=== PATIENT | female | born 1950 | race Caucasian/White ===

== ENCOUNTER 2022-02-11 10:32 | Outpatient (CLI) | payer MEDICARE, SELFPAY ==
[2022-02-11 13:13] LABS: Albumin* 4.5 g/dL (3.3-5.0); Chloride* 98 mmol/L (96-114); Potassium* 5.3 mmol/L (3.6-5.1); Sodium* 130 mmol/L (135-149)
[2022-02-11 13:16] LABS: Blood Urea Nitrogen* 16 mg/dL (7-30); Carbon Dioxide* 21 mmol/L (20-32); Creatinine* 0.6 mg/dL (0.5-1.5); Estimated Glomerular Filt Rate 95 ml/min; Iron* 68 ug/dL (37-170)
[2022-02-11 13:17] LABS: Calcium* 9.9 mg/dL (8.4-10.6); Glucose* 131 mg/dL (60-115); Phosphorus* 4.9 mg/dL (2.5-4.5); Uric Acid* 2.6 mg/dL (2.2-8.4)
[2022-02-11 13:26] LABS: Percent Iron Saturation 14 % (20-50); Total Iron Binding Capacity 486 ug/dL (265-497)
[2022-02-11 13:50] LABS: Ferritin* 8.7 ng/mL (11.1-264.0)
== END 2022-02-11 10:33 | disposition home or self-care (01) ==
PROVIDERS: PCP Internal Medicine; Visit Provider Internal Medicine Nephrology
DX: E11.9 Type 2 diabetes mellitus without complications (principal); I10 Essential (primary) hypertension; N18.9 Chronic kidney disease, unspecified; D64.9 Anemia, unspecified; F41.9 Anxiety disorder, unspecified
CPT/HCPCS: 80069; 82043; 82310; 82570; 82728; 83540; 83550; 83970; 84550

== ENCOUNTER 2022-02-17 10:47 | Outpatient (CLI) | payer MEDICARE, SELFPAY ==
[2022-02-17 12:46] LABS: Creatinine Urine 28.4 mg/dL
[2022-02-17 12:52] LABS: Microalbumin Creatinine Ratio 30 mg/g (0-30); Microalbumin Urine < 1 mg/dL
== END 2022-02-17 10:48 | disposition home or self-care (01) ==
PROVIDERS: PCP Internal Medicine; Visit Provider Internal Medicine Nephrology
DX: E11.9 Type 2 diabetes mellitus without complications (principal); I10 Essential (primary) hypertension; N18.9 Chronic kidney disease, unspecified; D64.9 Anemia, unspecified; G47.00 Insomnia, unspecified; R52 Pain, unspecified
CPT/HCPCS: 82043; 82570; 87086

== ENCOUNTER 2022-08-20 10:48 | Outpatient (CLI) | payer MEDICARE, SELFPAY | END 2022-08-20 10:49 | disposition home or self-care (01) | PROVIDERS: PCP Internal Medicine; Referring Provider Internal Medicine; Visit Provider Internal Medicine | DX: D64.9 Anemia, unspecified (principal); I10 Essential (primary) hypertension; N18.1 Chronic kidney disease, stage 1; E11.9 Type 2 diabetes mellitus without complications | CPT/HCPCS: 80061; 80069; 82043; 82310; 82570; 82728; 83540; 83550; 83970; 84550; 87086 ==

== ENCOUNTER 2023-03-18 10:28 | Outpatient (CLI) | payer MEDICARE, SELFPAY | END 2023-03-18 10:29 | disposition home or self-care (01) | LOC: NFLDREF 03-22 06:42 | PROVIDERS: PCP Internal Medicine; Referring Provider Internal Medicine; Visit Provider Internal Medicine Nephrology | DX: D64.9 Anemia, unspecified (principal); E11.9 Type 2 diabetes mellitus without complications; I10 Essential (primary) hypertension; N18.1 Chronic kidney disease, stage 1 | CPT/HCPCS: 80061; 80069; 82043; 82570; 82728; 83540; 83550; 84450; 84460; 84550 ==

== ENCOUNTER 2023-05-26 09:27 | Outpatient (CLI) | payer MEDICARE, SELFPAY ==
--- NOTE | 2023-05-26 09:45 | CRLHL7_ITS ---
For Patients: As a result of the Cures Act, medical imaging exams and procedure reports are released immediately into your electronic medical record. You may view this report before your referring provider. If you have questions, please contact your health care provider. BILATERAL SCREENING MAMMOGRAM WITH COMPUTER-AIDED DETECTION AND TOMOSYNTHESIS TECHNIQUE: CC and MLO views were obtained. These mammographic images have been obtained using full-field digital technique. These mammographic images were interpreted with the benefit of computer-aided detection. Breast Tomosynthesis was used in this interpretation. COMPARISON FILM: 12/15/18, 08/17/17, 04/09/15. FINDINGS: There are scattered areas of fibroglandular density IMPRESSION: There is no radiographic evidence for malignancy. ASSESSMENT: BI-RADS Category 1: Negative RECOMMENDATION: Routine screening mammogram in 1 year. A lay language report of this examination will be provided to the patient. NAREN PICHARDO M.D. Diagnostic/Nuclear Medicine Radiologist [email or web address]:[email or web address] Transcribed: 3:22 p.mAdams briceno/Dictated by: Naren Pichardo MD @ 05/27/2023 8:28:00 AM (Electronically Signed)
== END 2023-05-26 09:28 | disposition home or self-care (01) ==
LOC: MAMMO 09:28
PROVIDERS: PCP Internal Medicine; Visit Provider Internal Medicine
DX: Z12.31 Encounter for screening mammogram for malignant neoplasm of breast (principal); I10 Essential (primary) hypertension; E11.9 Type 2 diabetes mellitus without complications; N18.1 Chronic kidney disease, stage 1; D64.9 Anemia, unspecified
CPT/HCPCS: 77063; 77067; 80053; 80061; 82043; 82570

== ENCOUNTER 2024-04-06 10:38 | Outpatient (CLI) | payer MEDICARE, SELFPAY ==
--- OUTSIDE RECORDS SUMMARY | 2024-04-09 08:43 | XMS_ITS | Clinical Summary ---
Author Organization [facility] Address [address] [place] [address] Care Team Providers Care Associate Justice Name Role Phone Unavailable Primary Care Provider Unavailabl e Source Comments Patient records contain information from all sites at [facility]. For routine questions regarding patient records, call [phone] during business hours, M-F 8:00 AM - 5:00 PM Central Time. Record requests for emergency care only can be directed to [phone] at any time.[facility] Allergies Active Allergy Reactions Criticality Noted Date Comments Hydrocodone-Acetaminophen Itching 12/30/2010 Morphine GI intolerance 03/12/2009 Pollen Extracts Other (see comments) 03/12/2009 Propoxyphene Other (see comments) 06/29/2014 Tramadol Other (see comments) 06/29/2014 Medications losartan (COZAAR) 100 mg tablet Take 1 tablet by mouth daily. 12/06/19 15 Active lidocaine (LIDODERM) 5 % Apply 1 patch topically daily. 10/06/19 17 Active aspirin (LO-DOSE ASPIRIN) [address] tablet Take 1 tablet by mouth 2 (two) times a day. 03/12/20 09 Active metFORMIN (GLUCOPHAGE) 500 mg tablet Take 1 tablet by mouth 2 (two) times a day. 12/20/19 15 Active pravastatin (PRAVACHOL) 40 mg tablet Take 1 tablet by mouth daily. 12/06/19 15 Active cyanocobalamin (VITAMIN B-12) 1,000 mcg/mL injection Inject 1 mL intramuscularly every 30 (thirty) days. 12/20/19 15 Active spironolactone (ALDACTONE) 50 mg tablet Take 1 tablet (50 mg total) by mouth daily. 90 tablet 3 07/27/19 Active carBAMazepine (TEGretol) 200 mg tablet Take 1 tablet (200 mg total) by mouth 2 (two) times a day. 180 tablet 3 07/27/19 Active Accu-Chek Susan Plus test strp strips Test daily before all meals/snacks and once before bedtime. 3 each 09/27/19 Active blood-glucose meter (Accu-Chek Susan Plus Meter) misc Test daily before all meals/snacks and once before bedtime. 1 each 3 09/27/19 Active Accu-Chek Susan Plus test strp stripsIndicati ons:Diabetes Mellitus Type 2 (HCC) 4 test daily. Check blood sugar before meals and at bedtime 360 test 3 10/03/19 Active insulin asp prt-insulin aspart (NovoLOG Mix 70-30FlexPen U-100) 100 unit/mL (70-30) injection Inject 0.18 mL (18 Units total) under the skin daily. 16.2 mL 3 10/19/19 Active eszopiclone (LUNESTA) 2 mg tablet Take 1 tablet (2 mg total) by mouth at bedtime. Take immediately before bedtime 90 tablet 3 02/07/20 Active amLODIPine (NORVASC) 2.5 mg tablet Take 1 tablet (2.5 mg total) by mouth at bedtime. 90 tablet 3 08/25/19 Active omeprazole (PriLOSEC) [address] capsule Take 1 capsule (20 mg total) by mouth every morning before breakfast. 90 capsule 3 10/04/19 24 025 Active metoprolol succinate (TOPROL-XL) 50 mg 24 hr tablet Take 1 tablet (50 mg total) by mouth daily. Do not crush or chew. 90 tablet 3 10/04/19 24 025 Active Active Problems Problem Noted Date Diagnosed Date Achalasia 10/04/2023 Raynaud's Disease 08/24/2022 Periodic Headache Syndromes In Child Or Adult Not Intractable 08/24/2022 Anemia Iron Deficiency 11/23/2018 Hyperkalemia 11/23/2018 Urinary Tract Infection Site Not Specified 07/26 Hyponatremia 04/20/2018 Hypertensive Chronic Kidney Disease With Stage 1 Through Stage 4 Chronic Kidney Disease, Or Unspecified Chronic Kidney Disease 03/24/2016 Chronic Kidney Disease Stage 1 Glomerular Filtration Rate Greater Than 90 03/28/2015 Diabetes Mellitus Type 2 06/21/2012 Immunizations Name Administration Dates Next Due Influenza Split 03/17/2012 Social History Tobacco Use Types Packs/Day Years Used Date Smoking Tobacco: Never Nutrition Answer Date Recorded Nutrition: EVOO Fat Source 13 12/11 Nutrition: Servings of Fruits/Vegetables per Day Not on file 12/12/2019 Dental Answer Date Recorded Dental: Regular Dentist Unknown 07/11/19 21 Comments Unknown Sex and Gender Information Value Date Recorded Sex Assigned at Not on file Legal Sex Female 1:00 PM FINANCIAL ADVISOR Gender Identity Not on file Sexual Orientation Not on file Last Filed Vital Signs Vital Sign Reading Time Taken Comments Blood Pressure 180/90 10/04/2023 2:50 PM CDT Pulse 88 10/04/2023 2:50 PM CDT Temperature - - Respiratory Rate 16 02/01/2017 3:06 PM CDT Vital sign result from Clinical Notes. Oxygen Saturation - - Inhaled Oxygen Concentration - - Weight 67.5 kg (148 lb 13 oz) 10/04/2023 2:50 PM CDT Height 152 cm (4' 11.84) 10/04/2023 2: 50 PM CDT Body Mass Index 29.22 10/04/2023 2:50 PM CDT Plan of Treatment Health Maintenance Due Date Last Done Comments Bone Density Scan (Osteoporosis Screen) 1949 CT Colonography 1950 Cologuard 1950 Diabetic Office Visit with Foot Exam 1949 Dilated Eye Exam 1949 FIT 1950 Hepatitis C Screening 1950 Hepatitis B Vaccines (1 of 3 - Risk 3-dose series) 2009 Mammogram 06/21/2013 06/21/2012, 05/2010 (Performed elsewhere), 05/17/2008 (Performed elsewhere) Urine Albumin 06/22/2013 06/22/2012 Colonoscopy 08/15/2021 08/16/2011 (Perf ormed elsewhere) Colorectal Cancer Screening 08/15/2021 Depression Screening (Annual PHQ-2) 05/17/2023 Fall Risk Screen (Annual) 05/17/2023 Office Visit for Blood Pressure Check / Re-check 01/04/2024 10/04/2023 COVID-19 Vaccine ( season) 2024 03/01/2023, 10/22/2022, 02/14/2022, Additional history exists Influenza Vaccine (#1) 2024 , 02/14/2022, 02/10/2021, Additional history exists Hemoglobin A1C 04/01/2024 09/30/2023, 070 06/2018, 12/05/2014, Additional history exists Creatinine Level (Kidney Function Test) 09/29/2024 09/30/2023, 11/15/2018, 12/05/2014, Additional history exists Potassium Level 09/29/2024 09/30/2023, 070 06/2018, 06/21/2012 Sodium Level 09/29/2024 09/30/2023, 07/0 06/2018, 06/21/2012 Lipid (Cholesterol) Screening 09/29/2028 09/30/2023, 12/05/2014, 10/11/2012, Additional history exists DTaP,Tdap,and Td Vaccines (3 - Td or Tdap) 02/12/2029 02/12/2019, 02/16/2012 Zoster Vaccines Completed 12/20/2017, 040 12/2017, 12/31/2009 Pneumococcal vaccine (65+ years) Completed 09/10/2021, 03/11/2015, 09/24/2009 IPV Vaccines Aged Out No longer eligi ble based on patient's age to complete this topic Procedures Procedure Name Priority Date/Time Associated Diagnosis Comments HEMOGLOBIN A1C, B Routine 12/05/2014 8:2 4 AM CDT LIPID PANEL, S Routine 12/05/2014 8:24 AM CDT CREATININE WITH EGFR, S/P Routine 12/05/2014 8:24 AM CDT ALBUMIN, 24 HR, U Routine 06/22/2012 10: 15 AM FINANCIAL ADVISOR BI BREAST SCREENING UNILATERAL Routine 06/21/2012 1:07 PM FINANCIAL ADVISOR SODIUM, S/P Routine 06/21/2012 9:59 AM FINANCIAL ADVISOR POTASSIUM, S/P Routine 06/21/2012 9:59 AM FINANCIAL ADVISOR from Last 3 Months or Most Recently Relevant to Health Maintenance Results * Lipid Panel (12/05/2014 8:24 AM CDT) Cholesterol, Total 193 SeeComment MG/DL [facility] Comment: REFERENCE VALUE Desirable: < 200 Borderline high: 200 - 239 High: > or = 240 Triglycerides 117 SeeComment MG/DL [facility] Comment: REFERENCE VALUE Normal: <150 Borderline high: 150-199 High: 200-499 Very high: > or =500 Cholesterol, HDL, S 63 >=50 MG/DL [facility] Calculated LDL 107 SeeComment MG/DL [facility] Comment: REFERENCE VALUE Desirable: <100 Above Desirable: 100-129 Borderline high: 130-159 High: 160-189 Very high: > or =190 Cholesterol, Non-HDL, Calculated 130 SeeComment MG/DL [facility] Comment: REFERENCE VALUE Desirable: <130 Above Desirable: 130-159 Borderline high: 160-189 High: 190-219 Very high: > or =220 12/05/2014 8:24 AM CDT 12/05/2014 8:24 AM CDT us Harmony Sen APRN, C.N.P., M.S. LAB BLOOD ADD-O N Final Result Performing Organization Address City/[facility] Co de Phone Number [facility] [address] * (ABNORMAL) Hemoglobin A1c (12/05/2014 8:24 AM CDT) Pathologist [facility] Hemoglobin A1c, B 7.3(H) 4.0 - 6.0 % [facility] 12/05/2014 8:24 AM CDT 12/05/2014 8:24 AM CDT us Harmony Sen APRN, C.N.P., M.S. LAB BLOOD ADD-O N Final Result Performing Organization Address [facility] de Phone Number [facility] [address] * Creatinine with Estimated GFR (MDRD) (12/05/2014 8:24 AM CDT) Pathologist [facility] Creatinine 0.8 0.6 - 1.1 MG/DL [facility] eGFR Non-Black/Afric an Haitian >60 >60 ML/MIN/BSA [facility] eGFR-Black/Afri can Haitian >60 >60 ML/MIN/BSA [facility] 12/05/2014 8:24 AM CDT 12/05/2014 8:24 AM CDT us Harmony Sen APRN, C.N.P., M.S. LAB BLOOD ADD-O N Final Result Performing Organization Address City/[facility]/ZIP Co de Phone Number [facility] [address] * Microalbuminuria, 24 Hour, Urine (06/22/2012 10:15 AM FINANCIAL ADVISOR) 24 Hour Excretion 15 <30 MG/24 H [facility] Albumin Excretion Rate 10 <20 MCG/MIN [facility] Urine Volume 2663 ML [facility] Collection Duration 24 H [facility] Albumin Concentration 5.5 MG/L [facility] 06/22/2012 10:1 5 AM FINANCIAL ADVISOR 06/22/2012 10:15 AM FINANCIAL ADVISOR us Juan F Villela M.D. LAB URINE ORDERABLES Lexii su Result [facility] [address] * BI Breast Screening (06/21/2012 1:07 PM FINANCIAL ADVISOR) Anatomical Region Laterality Modality Breast N/A Mammography 06/21/2012 1:07 PM FINANCIAL ADVISOR Impressions 06/21/2012 2:01 PM FINANCIAL ADVISOR NEGATIVE There is no mammographic evidence of malignancy. RECOMMENDATION: A 1 year screening mammogram is recommended. The patient will receive a letter notifying her of the results. deonna Collins M.D., M.D./kartik:06/21/2012 13:42:50 letter sent: 1S/2S - Negative Screen Mammogram BI-RADS: 1 Negative Electronically signed by: Shante Lyon MD [phone] [id number] 21-Jun-2012 14:01 Eusebia French MD 21-Jun-2012 14:01 Narrative 06/21/2012 2:01 PM FINANCIAL ADVISOR 21-Jun-2012 13:07:00 Exam: R MG /Screening Exam Indications: Mammogram Screening Breast Ca ORIGINAL REPORT - 21-Jun-2012 14:01:00 EXAM: BILATERAL DIGITAL SCREENING MAMMOGRAM WITH CAD: 06/21/2012 HISTORY/INDICATION: DM2. Current study was also evaluated with a Computer Aided Detection (CAD) system. COMPARISON: No prior exams were available for comparison. DENSITY: (D1) The tissue of both breasts is almost entirely fat. FINDINGS: No significant masses, calcifications, or other findings are seen in either breast. Procedure Note Lebron French M.D. - 08/13/2017 21-Jun-2012 13:07:00 Exam: R MG /Screening Exam Indications: Mammogram Screening Breast Ca ORIGINAL REPORT - 21-Jun-2012 14:01:00 EXAM: BILATERAL DIGITAL SCREENING MAMMOGRAM WITH CAD: 06/21/2012 HISTORY/INDICATION: DM2. Current study was also evaluated with a Computer Aided Detection (CAD) system. COMPARISON: No prior exams were available for comparison. DENSITY: (D1) The tissue of both breasts is almost entirely fat. FINDINGS: No significant masses, calcifications, or other findings are seen in either breast. IMPRESSION: NEGATIVE There is no mammographic evidence of malignancy. RECOMMENDATION: A 1 year screening mammogram is recommended. The patient will receive a letter notifying her of the results. Eusebia Lyon M.D. [facility],luz marina/jenniferrad:06/21/2012 13:42:50 letter sent: 1S/2S - Negative Screen Mammogram BI-RADS: 1 Negative Electronically signed by: Shante Lyon MD [phone] [id number] 21-Jun-2012 14:01 Eusebia French MD05-Feb-2013 14:01 Juan F Villela M.D. IMG BI PROCEDURES Final R esult * Sodium (06/21/2012 9:59 AM FINANCIAL ADVISOR) Sodium, S 143 135 - 145 MMOL/L [facility] 06/21/2012 9:59 AM FINANCIAL ADVISOR 06/21/2012 9:59 AM FINANCIAL ADVISOR Juan F Villela M.D. LAB BLOOD ADD-ON Final Re sult [facility] [address] * Potassium (06/21/2012 9:59 AM FINANCIAL ADVISOR) Potassium, S 4.2 3.6 - 5.2 MMOL/L [facility] 06/21/2012 9:59 AM FINANCIAL ADVISOR 06/21/2012 9:59 AM FINANCIAL ADVISOR us Juan F Villela M.D. LAB BLOOD ADD-ON Final Re sult [facility] [address] [place] [address], [facility] from Last 3 Months or Most Recently Relevant to Health Maintenance Insurance [facility]
--- OUTSIDE RECORDS SUMMARY | 2024-04-09 08:43 | XMS_ITS | Referral Summary ---
Author Organization [facility] Address [address] [place] [address] Care Team Providers Care Checker Dump Grounds Name Role Phone Unavailable Primary Care Provider Unavailabl e Source Comments Patient records contain information from all sites at [facility]. For routine questions regarding patient records, call [phone] during business hours, M-F 8:00 AM - 5:00 PM Central Time. Record requests for emergency care only can be directed to [phone] at any time.[facility] Allergies Active Allergy Reactions Criticality Noted Date [...] on file Legal Sex Female 1:00 PM BRAND SALES CONSULTANT Gender Identity Not on file Sexual Orientation [...] 10/04/2023 2:50 PM CDT Plan of Treatment Not on file Procedures Procedure Name Priority Date/Time Associated Diagnosis Comments HEMOGLOBIN A1C, B Routine 12/05/2014 8:2 4 AM CDT LIPID PANEL, S Routine 12/05/2014 8:24 AM CDT CREATININE WITH EGFR, S/P Routine 12/05/2014 8:24 AM CDT ALBUMIN, 24 HR, U Routine 06/22/2012 10: 15 AM BRAND SALES CONSULTANT BI BREAST SCREENING UNILATERAL Routine 06/21/2012 1:07 PM BRAND SALES CONSULTANT SODIUM, S/P Routine 06/21/2012 9:59 AM BRAND SALES CONSULTANT POTASSIUM, S/P Routine 06/21/2012 9:59 AM BRAND SALES CONSULTANT from Last 3 Months or Most Recently Relevant to Health Maintenance Results * Lipid Panel (12/05/2014 8:24 AM CDT) Cholesterol, Total 193 SeeComment MG/DL [facility] Comment: REFERENCE VALUE Desirable: < 200 Borderline high: 200 - 239 High: > or = 240 Triglycerides 117 SeeComment MG/DL [facility] Comment: REFERENCE VALUE Normal: <150 Borderline high: 150-199 High: 200-499 Very high: > or =500 Cholesterol, HDL, S 63 >=50 MG/DL [facility] Calculated LDL 107 SeeComment MG/DL [facility] Comment: REFERENCE VALUE Desirable: <100 Above Desirable: 100-129 Borderline high: 130-159 High: 160-189 Very high: > or =190 Cholesterol, Non-HDL, Calculated 130 SeeComment MG/DL [facility] Comment: REFERENCE VALUE Desirable: <130 Above Desirable: 130-159 Borderline high: 160-189 High: 190-219 Very high: > or =220 12/05/2014 8:24 AM CDT 12/05/2014 8:24 AM CDT us Harmony Sen APRN, C.N.P., M.S. LAB BLOOD ADD-O N Final Result [facility] [address] * (ABNORMAL) Hemoglobin A1c (12/05/2014 8:24 AM CDT) Hemoglobin A1c, B 7.3(H) 4.0 - 6.0 % [facility] 12/05/2014 8:24 AM CDT 12/05/2014 8:24 AM CDT Harmony Sen APRN, C.N.P., M.S. LAB BLOOD ADD-O N Final Result Performing Organization Address City/[facility] Co de Phone Number [facility] [address] * Creatinine with Estimated GFR (MDRD) (12/05/2014 8:24 AM CDT) Creatinine 0.8 0.6 - 1.1 MG/DL [facility] eGFR Non-Black/Afric an Filipino >60 >60 ML/MIN/BSA [facility] eGFR-Black/Afri can Filipino >60 >60 ML/MIN/BSA [facility] 12/05/2014 8:24 AM CDT 12/05/2014 8:24 AM CDT Harmony Sen APRN, C.N.P., M.S. LAB BLOOD ADD-O N Final Result Performing Organization Address City/[facility]/ZIP Co de Phone Number [facility] [address] * Microalbuminuria, 24 Hour, Urine (06/22/2012 10:15 AM BRAND SALES CONSULTANT) 24 Hour Excretion 15 <30 MG/24 H [facility] Albumin Excretion Rate 10 <20 MCG/MIN [facility] Urine Volume 2663 ML [facility] Collection Duration 24 H [facility] Albumin Concentration 5.5 MG/L [facility] 06/22/2012 10:1 5 AM BRAND SALES CONSULTANT 06/22/2012 10:15 AM BRAND SALES CONSULTANT us Juan F Villela M.D. LAB URINE ORDERABLES Lexii l Result [facility] [address] * BI Breast Screening (06/21/2012 1:07 PM BRAND SALES CONSULTANT) Anatomical Region Laterality Modality Breast N/A Mammography 06/21/2012 1:07 PM BRAND SALES CONSULTANT Impressions 06/21/2012 2:01 PM BRAND SALES CONSULTANT NEGATIVE There is no mammographic evidence of malignancy. RECOMMENDATION: A 1 year screening mammogram is recommended. The patient will receive a letter notifying her of the results. Eusebia flynn,deonna/kartik:06/21/2012 13:42:50 letter sent: 1S/2S - Negative Screen Mammogram BI-RADS: 1 Negative Electronically signed by: Shante Lyon MD [phone] 21-Jun-2012 14:01 Eusebia French MD 21-Jun-2012 14:01 Narrative 06/21/2012 2:01 PM BRAND SALES CONSULTANT 21-Jun-2012 13:07:00 Exam: R MG /Screening Exam [...] letter notifying her of the results. Eusebia flynn,deonna/kartik:06/21/2012 13:42:50 letter sent: 1S/2S - Negative Screen Mammogram BI-RADS: 1 Negative Electronically signed by: Shante Lyon MD [phone] [id number] 21-Jun-2012 14:01 Eusebia French MD05-Feb-2013 14:01 Juan F Villela M.D. IMG BI PROCEDURES Final R esult * Sodium (06/21/2012 9:59 AM BRAND SALES CONSULTANT) Sodium, S 143 135 - 145 MMOL/L [facility] 06/21/2012 9:59 AM BRAND SALES CONSULTANT 06/21/2012 9:59 AM BRAND SALES CONSULTANT Juan F Villela M.D. LAB BLOOD ADD-ON Final Re sult [facility] [address] [facility] [address] [place], [place] [id number] [place] [address] * Potassium (06/21/2012 9:59 AM BRAND SALES CONSULTANT) Potassium, S 4.2 3.6 - 5.2 MMOL/L [facility] 06/21/2012 9:5 9 AM BRAND SALES CONSULTANT 06/21/2012 9:59 AM BRAND SALES CONSULTANT Jua nF Villela M.D. LAB BLOOD ADD-ON Final Re sult [facility] [address] [place] [address], [facility] from Last 3 Months or Most Recently Relevant to Health Maintenance Insurance [facility]
--- OUTSIDE RECORDS SUMMARY | 2024-04-09 08:44 | XMS_ITS ---
Author Organization [facility] Address [address] [place] [address] Care Team Providers Care Transportation Modeler Name Role Phone Unavailable Unavailable Unavailable Surgery Details Not on file Complications Check Surgery Details section. Procedure Estimated Blood Loss Check Surgery Details section. Procedure Findings Check Surgery Details section. Procedure Specimens Taken Check Surgery Details section.
== END 2024-04-06 10:39 | disposition home or self-care (01) ==
LOC: NFLDREF 04-09 08:42
PROVIDERS: PCP Internal Medicine; Referring Provider Internal Medicine; Visit Provider Internal Medicine Nephrology
DX: E11.9 Type 2 diabetes mellitus without complications (principal); I10 Essential (primary) hypertension; N18.1 Chronic kidney disease, stage 1; F41.9 Anxiety disorder, unspecified; D64.9 Anemia, unspecified
CPT/HCPCS: 80061; 80069; 82043; 82570; 82728; 83540; 83550; 84450; 84460; 84550; 86140; 87086

== ENCOUNTER 2024-08-23 14:18 | Outpatient (CLI) | payer MEDICARE, SELFPAY | END 2024-08-23 14:19 | disposition home or self-care (01) | PROVIDERS: PCP Internal Medicine; Visit Provider Internal Medicine | DX: D64.9 Anemia, unspecified (principal); R53.1 Weakness; N18.1 Chronic kidney disease, stage 1 | CPT/HCPCS: 80053; 84443 ==

== ENCOUNTER 2024-09-04 09:54 | Outpatient (CLI) | payer MEDICARE, SELFPAY ==
--- NOTE | 2024-09-04 10:00 | CRLHL7_ITS ---
For Patients: As a result of the Century Cures Act, medical imaging exams and procedure reports are released immediately into your electronic medical record. You may view this report before your referring provider. If you have questions, please contact your health care provider. Indication: WEAKNESS, WEIGHT LOSS 50#s IN 5-6 MONTHS., LEFT SIDED CP DOWN TO MID ABD. PT HAD 2 FALLS A MONTH AGO Technique: CT Chest/Abd/Pelvis 56CC ISOVUE 370 INTRAVENOUS CONTRAST AND WATER PREP ORAL Please note that all CT scans at this facility use dose modulation, iterative reconstruction, and/or weight-based dosing when appropriate to reduce radiation dose to as low as reasonably achievable. Comparison: 07/29/2010 CT abdomen and pelvis Findings: In the chest, atherosclerotic changes are present. No aneurysm. Bilateral pulmonary emboli are present within the distal right main pulmonary artery extending into the interlobar artery as well as subsegmental branches in the right lower lobe and right upper lobe. Pulmonary emboli also present within left lower lobe segmental branches. Peripheral density measuring 2.2 cm within the posterior right lower lobe noted. Calcified granuloma within the right middle lobe. No pleural effusion or pneumothorax. Degenerative disc disease. Increased thoracic kyphosis. Postop changes to the right shoulder. No suspicious osseous lesion or fracture. In the abdomen, postop changes to the proximal stomach/GE junction. No intrahepatic mass. Differential perfusion noted within the left hepatic lobe. Calcified granulomas within the spleen. Thickening of the left adrenal gland. Normal right adrenal gland. No hydronephrosis. Pancreas unremarkable. Normal gallbladder. No adenopathy. Atherosclerotic changes. Postop changes lumbar spine. In the pelvis, the bladder is normal. No bowel obstruction. Increased colonic stool. No pelvic adenopathy. No acute fracture. Chronic changes to the left proximal femur. Impression: Bilateral pulmonary emboli. Called to Dr. Carrion 12:14 p.m. 09/04/2024. Peripheral posterior pulmonary density right lower lobe which could represent infarct. Constipation. No mechanical bowel obstruction. Postop changes upper abdomen. No discernible hepatic mass. Please note that all CT scans at this facility use dose modulation, iterative reconstruction, and/or weight-based dosing when appropriate to reduce radiation dose to as low as reasonably achievable. Dictated by Marcos Benavides MD @ 09/04/2024 12:52:02 PM (Electronically Signed)
== END 2024-09-04 09:55 | disposition home or self-care (01) ==
PROVIDERS: PCP Internal Medicine; Visit Provider Internal Medicine
DX: R53.1 Weakness (principal); I26.99 Other pulmonary embolism without acute cor pulmonale; R63.4 Abnormal weight loss
CPT/HCPCS: 71260; 74177; Q9967

== ENCOUNTER 2024-09-19 11:08 | Outpatient (CLI) | payer MEDICARE, SELFPAY | END 2024-09-19 11:09 | disposition home or self-care (01) | LOC: NFLDREF 11:08 | PROVIDERS: PCP Internal Medicine; Visit Provider Internal Medicine | DX: I10 Essential (primary) hypertension (principal); I26.99 Other pulmonary embolism without acute cor pulmonale; R79.89 Other specified abnormal findings of blood chemistry | CPT/HCPCS: 80053 ==

== ENCOUNTER 2025-02-14 10:41 | Outpatient (CLI) | payer MEDICARE, SELFPAY | END 2025-02-14 10:42 | disposition home or self-care (01) | LOC: NFLDREF 02-16 15:02 | PROVIDERS: PCP Internal Medicine; Referring Provider Internal Medicine; Visit Provider Internal Medicine | DX: E11.9 Type 2 diabetes mellitus without complications (principal) | CPT/HCPCS: 80053; 80061; 82043; 82570 ==

== ENCOUNTER 2025-05-02 11:06 | Outpatient (CLI) | payer MEDICARE, SELFPAY ==
--- NOTE | 2025-05-02 11:30 | CRLHL7_ITS ---
For Patients: As a result of the Century Cures Act, medical imaging exams and procedure reports are released immediately into your electronic medical record. You may view this report before your referring provider. If you have questions, please contact your health care provider. INDICATION: BILATERAL SCREENING MAMMOGRAM, ASYMPTOMATIC 74 Y/O FEMALE COMPARISON: 05/26/2023, 12/15/2018 TECHNIQUE: Digital mammogram in CC and MLO projections including computer-aided detection (CAD) and tomosynthesis. BREAST COMPOSITION: There are scattered areas of fibroglandular density. FINDINGS: No suspicious findings. ASSESSMENT: BI-RADS 1 Negative RECOMMENDATION: Annual screening mammogram. A lay language report of this examination will be provided to the patient. Dictated by: Marcos Benavides MD @ 05/03/2025 09:34:45 (Electronically Signed)
== END 2025-05-02 11:07 | disposition home or self-care (01) ==
LOC: MAMMO 11:07
PROVIDERS: PCP Internal Medicine; Visit Provider Internal Medicine
DX: Z12.31 Encounter for screening mammogram for malignant neoplasm of breast (principal)
CPT/HCPCS: 77063; 77067